=== PATIENT | male | born 1945 | race Hispanic/Latino ===

== ENCOUNTER 2022-09-17 16:52 | Emergency (ER) | payer SELFPAY ==
[~2022-09-17] VITALS: Ht 172.7 cm; Wt 79.4 kg
[2022-09-17 17:22] LABS: BASOPHILS % (AUTO) 0.2 % (0.0-5.0); EOSINOPHILS % (AUTO) 0.7 % (0.0-8.0); HEMATOCRIT 38.2 % (42-54); LYMPHOCYTES % (AUTO) 18.8 % (21.0-51.0); MEAN CORPUSCULAR HEMOGLOBIN 27.2 pg (27.0-33.0); MEAN CORPUSCULAR HGB CONC 32.2 g/dL (32.0-36.0); MEAN CORPUSCULAR VOLUME 84.5 fL (79-99); MONOCYTES % (AUTO) 6.9 % (3.0-13.0); NEUTROPHILS % (AUTO) 73.2 % (40.0-77.0); PLATELET COUNT (AUTO) 223 K/uL (130-400); RED BLOOD CELL COUNT(AUTO) 4.52 MIL/uL (4.50-6.20); RED CELL DISTRIBUTION WIDTH 13.9 % (11.0-15.5); WHITE BLOOD COUNT (AUTO) 8.2 K/uL (4.8-10.8)
[2022-09-17 17:33] LABS: POTASSIUM 4.1 mmol/L (3.5-5.1)
[2022-09-17 17:37] LABS: ALBUMIN 3.5 g/dL (3.5-5.0); TOTAL PROTEIN, SERUM 6.5 g/dL (6.0-8.3)
[2022-09-17] MEDS ORDERED: OCTYL 2-CYANOACRYLATE 1 EACH TP ONE (18:00)
[2022-09-17] MEDS ORDERED: KETO10 PO (18:43)
[2022-09-17 18:55] VITALS: BP 131/56
== END 2022-09-17 18:56 | disposition home or self-care (01) ==
LOC: EDH 16:52
DX: S91.112A Laceration without foreign body of left great toe without damage to nail, initial encounter (principal); Z98.890 Other specified postprocedural states; W18.39XA Other fall on same level, initial encounter; Y93.89 Activity, other specified; Y92.89 Other specified places as the place of occurrence of the external cause; Y99.8 Other external cause status
CPT/HCPCS: 36415; 73590; 73630; 80053; 85025